=== PATIENT | male | born 1955 | race African-American/Black ===

== ENCOUNTER 2025-03-26 11:08 | Emergency (ER) | payer BC, OTHER ==
[2025-03-26 11:18] VITALS: BMI 23.1
[2025-03-26 12:15] LABS: ABSOLUTE IMMATURE GRANULOCYTES 0.04 x10^3/uL (0.0-0.031); BASOPHILS # 0.05 x10^3/uL (0.01-0.08); EOSINOPHIL % 0.8 % (0.8-7.0); EOSINOPHILS # 0.06 x10^3/uL (0.04-0.54); MCHC 32.1 g/dl (32.3-36.5); MEAN CELL VOLUME 89.0 fl (79.0-92.2); MEAN PLT VOLUME 8.3 fl (9.4-12.4); MONOCYTE # 0.67 x10^3/uL (0.30-0.82); MONOCYTE % 9.3 % (5.3-12.2); RDW 13.2 % (12.2-16.6)
[2025-03-26] MEDS ORDERED: ACETAMINOPHEN INJECTION 100 ML ONE (12:16)
[2025-03-26] MEDS: ACETAMINOPHEN 1000 MG/100 ML BAG IVPB ONE (12:27)
[2025-03-26] MEDS: SODIUM CHLORIDE 1,000 ML IV STA (12:28)
[2025-03-26 12:34] LABS: URINE APPEARANCE CLEAR; URINE BILIRUBIN NEGATIVE (NEGATIVE); URINE COLOR YELLOW; URINE GLUCOSE (UA) NEGATIVE (NEGATIVE); URINE KETONE NEGATIVE (NEGATIVE); URINE LEUK ESTERASE NEGATIVE (NEGATIVE); URINE NITRITE NEGATIVE (NEGATIVE); URINE PROTEIN NEGATIVE (NEGATIVE); URINE UROBILINOGEN 0.2 mg/dL (0.2-1.0)
[2025-03-26 13:00] LABS: GLUCOSE,RANDOM 100.0 mg/dL (74-106)
[2025-03-26 13:01] LABS: TOT PROT 7.4 g/dl (6.4-8.2)
[2025-03-26 13:02] LABS: CO2 23.0 mmol/L (21-32)
[2025-03-26 13:04] LABS: ALK PHOS 83.0 U/L (40-150)
[2025-03-26 13:06] LABS: SGOT/AST 28.0 U/L (5-34); SGPT/ALT 22.0 U/L (0-55)
[2025-03-26 13:07] LABS: CREATININE 0.82 mg/dL (0.55-1.3)
[2025-03-26 15:00] VITALS: BP 126/79; PULSE 75; RESP 16; TEMP 97.9
[2025-03-26] MEDS ORDERED: METHOCARBAMOL 500 MG TABLET ONE (15:25)
[2025-03-26] MEDS ORDERED: KETOROLAC TROMETHAMINE 15 MG/ML VIAL ONE (15:26)
[2025-03-26] MEDS: METHOCARBAMOL 500 MG TABLET PO ONE (15:31)
[2025-03-26] MEDS: KETOROLAC TROMETHAMINE 15 MG/ML VIAL IVPUSH ONE (15:31)
== END 2025-03-26 17:32 | disposition home or self-care (01) ==
LOC: JER 11:08
PROC: 3E033NZ Introduction of Analgesics, Hypnotics, Sedatives into Peripheral Vein, Percutaneous Approach (ICD-10-PCS; principal; 2025-03-26)
PROC: 3E033GC Introduction of Other Therapeutic Substance into Peripheral Vein, Percutaneous Approach (ICD-10-PCS; 2025-03-26)
PROC: 3E033GC Introduction of Other Therapeutic Substance into Peripheral Vein, Percutaneous Approach (ICD-10-PCS; 2025-03-26)
PROC: 3E0337Z Introduction of Electrolytic and Water Balance Substance into Peripheral Vein, Percutaneous Approach (ICD-10-PCS; 2025-03-26)
DX: N20.0 Calculus of kidney (principal); R11.0 Nausea; R00.1 Bradycardia, unspecified; E87.5 Hyperkalemia; K57.90 Diverticulosis of intestine, part unspecified, without perforation or abscess without bleeding
CPT/HCPCS: 36415; 74176-TC; 80053; 81003; 82272; 83605; 83735; 85025; 86850; 86900; 86901; 87086; 93005; 93010; 99285-25